=== PATIENT | male | born 1980 | race Caucasian/White ===

== ENCOUNTER → 2018-11-05 | Outpatient (CLI) | payer OTHER ==
[~2018-11-05] MED LIST: ACETAMINOPHEN-1 EAC1 PO; ACETAMINOPHEN325 M1 PO; ADULT LOW DOSE81 MG PO; ANTACID650 MG PO; ASPIR 8181 MG PO; BACTRIM DS TAB1 EACH PO; EASY TOUCH; FISH OIL 1,0001 EAC5 PO; FLOMAX0.4 MG PO; HUMALOG100 UNIT/1 SUBQ; HYDROCODON-ACE1 EAC7 PO; IBUPROFEN 800800 M1 PO; INSULIN SYRINGES; KEFLEX500 MG PO; LANTUS SUBQ; LEVAQUIN 500 M500 MG PO; NOHOMEMEDICATIONS; NOVOLOG100 UNIT/1; NOVOLOG100 UNIT/1 SUBQ; ONDANSETRON HCL4 M2 SUBLING; PERCOCET 5-3251 EACH PO; SILVADENE20 GM TP
[2018-11-05 10:30] LABS: CALCIUM 8.7 mg/dL (8.5-10.1); CREATININE 5.1 mg/dL (0.6-1.3); POTASSIUM 4.8 mmol/L (3.5-5.1)
== END ==
LOC: M.LAB 09:50
PROVIDERS: Internal Medicine Nephrology
DX: E11.22 Type 2 diabetes mellitus with diabetic chronic kidney disease (principal); N18.6 End stage renal disease; Z79.4 Long term (current) use of insulin; Z99.2 Dependence on renal dialysis